=== PATIENT | female | born 1960 | race African-American/Black ===

== ENCOUNTER 2023-04-30 20:40 | Emergency (ER) | payer MEDICAID, OTHER ==
[~2023-04-30] VITALS: Ht 162.6 cm; Wt 68.0 kg
[~2023-04-30 20:40] MED LIST: ASPI-1073 PO; GLIP10TA10 PO; HYDR-3927 PO; MAGN400C PO; METF-416 PO; SIMV-43 PO
[2023-04-30 20:43] VITALS: O2SAT 98
[2023-04-30 22:40] LABS: BASOPHILS % 1.2 % (0.0-2.0); HEMATOCRIT. 35.7 % (36.0-48.0); HEMOGLOBIN. 11.4 g/dL (12.0-16.0); LYMPHOCYTES % 52.4 % (20.0-50.0); MEAN CORPUSCULAR HEMOGLOBIN 28.6 pg (28.0-32.0); MEAN CORPUSCULAR VOLUME 89.6 fL (81.0-99.0); MEAN PLATELET VOLUME 8.4 fl (7.4-10.4); MONOCYTES % 11.6 % (2.0-8.0); NEUTROPHILS % 31.8 % (40.0-76.0); PLATELET 176 x1000/uL (130-400); RED BLOOD CELL COUNT 3.99 mill/uL (4.2-5.4); RED CELL DISTRIBUTION WIDTH 12.7 % (11.6-14.6)
[2023-04-30 23:03] LABS: CHLORIDE 102 mEq/L (98-107)
[2023-05-01 02:23] VITALS: BP 123/79; PULSE 72; RESP 15; TEMP 98
== END 2023-05-01 02:51 | disposition short-term general hospital (02) ==
LOC: ER 20:40 → CANBEDREQ 05-01 03:04
DX: R07.89 Other chest pain (principal); E11.9 Type 2 diabetes mellitus without complications; I25.2 Old myocardial infarction; Z79.899 Other long term (current) drug therapy; Z20.822 Contact with and (suspected) exposure to COVID-19
CPT/HCPCS: 36415; 71045; 80053; 83880; 84484; 85025; 85379; 87426; 93005; 99285; C9803; Z7610